=== PATIENT | female | born 1955 | race Caucasian/White ===

== ENCOUNTER → 2018-07-15 | Outpatient (CLI) | payer OTHER ==
[~2018-07-15] MED LIST: CLA1000 MG PO; GARLIC OIL1 EACH PO; MULTI VITAMIN1 EACH PO; ONE DAILY WOME1 EAC2 PO; PRILOSEC 20 MG20 MG PO
--- NOTE | 2018-07-15 14:48 | 2DMMODE ---
[place] [address] 2 D/M-MODE ECHOCARDIOGRAM Name: ESPINOZA MCCLAIN Claudette Room: [facility]#: [id number] Admission: 07/15/18 Attend Phys: Yaz Gilbert, Discharge: Date of : 57 Date of Service: 07/15/18 1447 Report #: [id number] THIS REPORT FOR: //name// APPROVED REPORT Study performed: 07/15/2018 09:15:15 EXAM: Comprehensive 2D, Doppler, and color-flow Echocardiogram Patient Location: Out-Patient Status: routine BSA: 2.04 HR: 72 bpm BP: 105/60 mmHg Other Information Study Quality: Good Indications Palpitations 2D Dimensions IVSd: 7.64 (7-11mm) LVOT Diam: 20.14 (18-24mm) LVDd: 39.89 mm PWd: 7.64 (7-11mm) Ascending Ao: 28.50 (22-36mm) LVDs: 18.16 (25-40mm) Aortic Root: 20.95 mm Volumes Left Atrial Volume (Systole) LA ESV Index: 15.10 mL/m2 Aortic Valve AoV Peak Avelino.: 1.01 m/s AO Peak Gr.: 4.07 mmHg LVOT Max P.71 mmHg AO Mean Gr.: 2.07 mmHg LVOT Mean P.09 mmHg LVOT Max V: 1.09 m/s AO V2 VTI: 19.68 cm LVOT Mean V: 0.65 m/s GAGAN (VTI): 3.90 cm2 LVOT V1 VTI: 24.07 cm Mitral Valve E/A Ratio: 0.67 MV Decel. Time: 277.64 ms MV E Max Avelino.: 0.53 m/s MV PHT: 80.52 [place] [address] 2 D/M-MODE ECHOCARDIOGRAM Name: ESPINOZA MCCLAIN Room: [facility]#: [id number] Admission: 07/15/18 Attend Phys: Yaz Gilbert, Discharge: Date of : 57 Date of Service: 07/15/18 1447 Report #: [id number] MVA (PHT): 2.73 cm2 TDI E/Lateral E': 3.79 E/Medial E': 6.63 Medial E' Avelino.: 0.08 m/s Lateral E' Avelino.: 0.14 m/s Pulmonary Valve PV Peak Avelino.: 0.93 m/s PV Peak Gr.: 3.47 mmHg Left Ventricle The left ventricle is normal size. There is normal LV segmental wall motion. There is normal left ventricular wall thickness. Left ventricular systolic function is normal. The left ventricular ejection fraction is within the normal range. LVEF is 55-60%. Grade I - abnormal relaxation pattern. Right Ventricle The right ventricle is normal size. The right ventricular systolic function is normal. Atria The left atrium size is normal. The right atrium size is normal. Aortic Valve The aortic valve is normal in structure. No aortic regurgitation is present. There is no aortic valvular stenosis. Mitral Valve The mitral valve is normal in structure. Trace mitral regurgitation. No evidence of mitral valve stenosis. Tricuspid Valve The tricuspid valve is normal in structure. There is no tricuspid valve regurgitation noted. Pulmonic Valve The pulmonary valve is normal in structure. There is no pulmonic valvular regurgitation. Great Vessels The aortic root is normal in size. IVC is normal in size and collapses >50% with inspiration[place] [address] 2 D/M-MODE ECHOCARDIOGRAM Name: ESPINOZA MCCLAIN Room: [facility]#: [id number] Admission: 07/15/18 Attend Phys: Yaz Gilbert, Discharge: Date of : 57 Date of Service: 07/15/18 1447 Report #: [id number] There is no pericardial effusion. <Conclusion> Left ventricular systolic function is normal. The left ventricular ejection fraction is within the normal range. <ELECTRONICALLY SIGNED> By: Davon Conde MD, FACC 07/15/18 1447 [id number] Davon Conde MD, [facility]INF
== END ==
LOC: M.CRD 08:56
DX: I47.1 Supraventricular tachycardia (principal); R00.2 Palpitations